=== PATIENT | male | born 1990 | race Caucasian/White ===

== ENCOUNTER 2018-08-10 00:26 | Emergency (ER) | payer OTHER ==
[~2018-08-10] VITALS: Ht 177.8 cm; Wt 70.8 kg
[~2018-08-10 00:26] MED LIST: AMOCLA250; AZIT250 PO; HYDACE5 PO; IBUPROFEN 400 MG; LEVSOD100; LEVSOD75 PO; LEVSOD88; Norco 5-325 Ta1 EACH PO; PROCODE120; PROM25 PO; TYLENOL 650 MG
== END 2018-08-10 01:15 | disposition home or self-care (01) ==
LOC: ER 00:26
DX: S61.210A Laceration without foreign body of right index finger without damage to nail, initial encounter (principal); Z23 Encounter for immunization; Z79.899 Other long term (current) drug therapy; W27.8XXA Contact with other nonpowered hand tool, initial encounter
CPT/HCPCS: 12001; 90471; 90714; 99283-25

== ENCOUNTER 2024-04-22 06:45 | Emergency (ER) | payer MEDICARE, OTHER ==
[~2024-04-22] VITALS: Ht 175.3 cm; Wt 74.8 kg
[2024-04-22] MEDS ORDERED: LEVOTHYROXINE112 M18 PO (07:45)
[2024-04-22] MEDS ORDERED: Ibuprofen 600 MG Tab PO ONE (07:50)
[2024-04-22 07:52] LABS: CORONAVIRUS COVID-19 AG Negative (NEGATIVE); INFLUENZA A AG Positive (NEGATIVE); INFLUENZA B AG Negative (NEGATIVE)
[2024-04-22 09:30] VITALS: BP 110/68
== END 2024-04-22 09:05 | disposition home or self-care (01) ==
LOC: ER 06:45
PROVIDERS: Student in an Organized Health Care Education/Training Program
DX: J11.1 Influenza due to unidentified influenza virus with other respiratory manifestations (principal); Z79.899 Other long term (current) drug therapy
CPT/HCPCS: 87428-QW; 93005; 93010; 99283-25; A9270